=== PATIENT | male | born 1970 | race Caucasian/White ===

== ENCOUNTER 2021-01-20 06:50 | Inpatient (IN) | payer BC ==
[~2021-01-20] VITALS: Ht 170.2 cm; Wt 88.0 kg
[2021-01-20] MEDS ORDERED: KETOROLAC TROMETHAMINE 30 MG/ML VIAL IV STA (07:03)
[2021-01-20] MEDS ORDERED: ONDANSETRON HCL INJ 2MG/ML 2ML 2 MG/ML VIAL IV STA (07:03)
[2021-01-20] MEDS: SODIUM CHLORIDE 0.9% 1000ML 1,000 ML IV SCH ×5 (07:10→22:51)
[2021-01-20] MEDS ORDERED: SODIUM CHLORIDE 0.9% 1000ML 1,000 ML ONE ×2 (07:11→08:13)
[2021-01-20] MEDS ORDERED: ONDANSETRON HCL INJ 2MG/ML 2ML 2 MG/ML VIAL ONE (07:11)
[2021-01-20] MEDS ORDERED: KETOROLAC TROMETHAMINE 30 MG/ML VIAL ONE (07:11)
[2021-01-20] MEDS ORDERED: SODIUM CHLORIDE 0.9% 50ML 50 ML ONE (07:21)
[2021-01-20] MEDS ORDERED: IOPAMIDOL 370 MG/ML 200 ML INFUS..BTL INJ ONE (07:22)
[2021-01-20] MEDS ORDERED: POTASSIUM CHLORIDE 20 MEQ TAB CR PO STA (08:07)
[2021-01-20] MEDS ORDERED: POTASSIUM CHLORIDE 20 MEQ TAB CR PO ONE (08:13)
[2021-01-20] MEDS ORDERED: CEFEPIME 2 GM in SODIUM CHLORIDE 0.9% 100 ML IV ONE (08:15)
[2021-01-20] MEDS ORDERED: METRONIDAZOLE 500MG/NS 100ML 100 ML IV ONE ×2 (08:15→08:37)
[2021-01-20] MEDS ORDERED: SODIUM CHLORIDE 0.9% 1000ML 1,000 ML IV SCH (08:15)
[2021-01-20] MEDS ORDERED: CEFEPIME HCL 1 GM VIAL ONE (08:38)
[2021-01-20] MEDS ORDERED: SODIUM CHLORIDE 0.9% 250ML 250 ML ONE (08:38)
[2021-01-20] MEDS: CEFTRIAXONE 1 GM in SODIUM CHLORIDE 0.9% 50ML 50 ML IV SCH (11:40)
[2021-01-20 12:06] VITALS: BP 116/92
[2021-01-20 12:11] VITALS: BP 116/92
[2021-01-20 12:51] VITALS: BP 116/92
[2021-01-20] MEDS ORDERED: METRONIDAZOLE 500MG/NS 100ML 100 ML IV SCH (14:00)
[2021-01-20] MEDS: METRONIDAZOLE 500 MG TAB PO SCH ×2 (14:00→22:51)
[2021-01-20] MEDS: ACETAMINOPHEN 325 MG TAB PO PRN (14:36)
[2021-01-20 14:41] LABS: CLARITY,URINE CLEAR (CLEAR)
[2021-01-20 14:42] LABS: COLOR,URINE ORANGE (YELLOW); KETONES,URINE NEGATIVE (NEGATIVE); LEUKOCYTE ESTERASE ,URINE NEGATIVE (NEGATIVE); NITRITE,URINE NEGATIVE (NEGATIVE); PROTEIN,URINE DIPSTICK NEGATIVE (NEGATIVE)
[2021-01-20 15:09] LABS: BACTERIA,URINE FEW /HPF; EPITHELIAL CELLS,URINE RARE /LPF; RBC,URINE 0-5 /HPF (0-5)
[2021-01-20] MEDS ORDERED: BENICAR20 MG PO (15:56)
[2021-01-20 17:13] VITALS: BP 110/87
[2021-01-20 19:43] VITALS: BP 114/92
[2021-01-20 21:00] VITALS: BP 114/92
[2021-01-20] MEDS: ONDANSETRON HCL INJ 2MG/ML 2ML 2 MG/ML VIAL IV PRN (21:33)
[2021-01-20] MEDS: Morphine 2mg Syringe 2 MG/ML SYR IV PRN (23:00)
[2021-01-21] VITALS (8 sets, daily range): BP systolic 98–117; BP diastolic 66–85
[2021-01-21 00:58] LABS: BASOPHILS % 0.3 % (0.0-1.0); EOSINOPHILS # (AUTO) 0.1 (0.0-0.4); EOSINOPHILS % 1.5 % (0.0-6.0); HEMATOCRIT 38.3 % (38.2-49.6); HEMOGLOBIN 13.4 g/dL (14.0-18.0); LYMPHOCYTES # (AUTO) 0.9 (1.0-3.2); LYMPHOCYTES % 10.1 % (18.0-39.1); MEAN CORPUSCULAR HEMOGLOBIN 31.6 pg (28-32); MEAN CORPUSCULAR VOLUME 90.3 fL (81-99); MONOCYTES # (AUTO) 1.2 (0.2-0.8); NEUTROPHILS # (AUTO) 6.8 (2.1-6.9); NEUTROPHILS % 74.6 % (38.7-80.0); PLATELET COUNT 150 x10e3/uL (140-360); RED BLOOD COUNT 4.24 x10e6/uL (4.3-5.7)
[2021-01-21] MEDS: ACETAMINOPHEN 325 MG TAB PO PRN ×2 (03:15→13:36)
[2021-01-21 05:46] LABS: BASOPHILS % 0.3 % (0.0-1.0); EOSINOPHILS # (AUTO) 0.1 (0.0-0.4); EOSINOPHILS % 1.3 % (0.0-6.0); HEMATOCRIT 37.9 % (38.2-49.6); HEMOGLOBIN 13.2 g/dL (14.0-18.0); LYMPHOCYTES # (AUTO) 0.9 (1.0-3.2); LYMPHOCYTES % 8.9 % (18.0-39.1); MEAN CORPUSCULAR HEMOGLOBIN 31.9 pg (28-32); MEAN CORPUSCULAR HGB CONC 34.8 g/dL (31-35); MEAN CORPUSCULAR VOLUME 91.5 fL (81-99); MONOCYTES # (AUTO) 1.4 (0.2-0.8); MONOCYTES % 13.7 % (4.4-11.3); NEUTROPHILS # (AUTO) 7.5 (2.1-6.9); NEUTROPHILS % 75.2 % (38.7-80.0); PLATELET COUNT 155 x10e3/uL (140-360); RED BLOOD COUNT 4.14 x10e6/uL (4.3-5.7)
[2021-01-21] MEDS: METRONIDAZOLE 500 MG TAB PO SCH ×3 (05:53→21:30)
[2021-01-21 07:03] LABS: ALBUMIN 2.6 g/dL (3.5-5.0); ALBUMIN/GLOBULIN RATIO 0.7 (0.8-2.0); ANION GAP 15.2 mmol/L (8-16); CALCIUM 8.5 mg/dL (8.4-10.2); CREATININE, SERUM 0.7 mg/dL (0.72-1.25); MAGNESIUM 1.8 MG/DL (1.3-2.1); POTASSIUM 3.2 mmol/L (3.5-5.1)
[2021-01-21] MEDS: CEFTRIAXONE 1 GM in SODIUM CHLORIDE 0.9% 50ML 50 ML IV SCH (09:30)
[2021-01-21] MEDS: SODIUM CHLORIDE 0.9% 1000ML 1,000 ML IV SCH ×3 (10:00→21:48)
[2021-01-21] MEDS: ONDANSETRON HCL INJ 2MG/ML 2ML 2 MG/ML VIAL IV PRN (13:36)
[2021-01-21] MEDS ORDERED: POTASSIUM CHLORIDE 20 MEQ TAB CR PO ONE (14:30)
[2021-01-21] MEDS: OLMESARTAN 20 MG TAB PO SCH (14:42)
[2021-01-21] MEDS: FAMOTIDINE 20 MG TAB PO SCH (17:33)
[2021-01-22] VITALS (7 sets, daily range): BP systolic 92–112; BP diastolic 55–91
[2021-01-22] MEDS ORDERED: DILTIAZEM HCL 5 MG/ML 5 ML VIAL IV ONE (04:30)
[2021-01-22] MEDS: METRONIDAZOLE 500 MG TAB PO SCH ×3 (04:45→21:50)
[2021-01-22 05:18] LABS: BASOPHILS # (AUTO) 0.1 (0.0-0.1); BASOPHILS % 0.6 % (0.0-1.0); EOSINOPHILS # (AUTO) 0.2 (0.0-0.4); EOSINOPHILS % 1.3 % (0.0-6.0); HEMATOCRIT 40.6 % (38.2-49.6); HEMOGLOBIN 14.4 g/dL (14.0-18.0); LYMPHOCYTES # (AUTO) 1.4 (1.0-3.2); LYMPHOCYTES % 10.8 % (18.0-39.1); MEAN CORPUSCULAR HEMOGLOBIN 32.1 pg (28-32); MEAN CORPUSCULAR HGB CONC 35.5 g/dL (31-35); MEAN CORPUSCULAR VOLUME 90.6 fL (81-99); MONOCYTES # (AUTO) 1.7 (0.2-0.8); MONOCYTES % 13.4 % (4.4-11.3); NEUTROPHILS # (AUTO) 9.2 (2.1-6.9); NEUTROPHILS % 72.6 % (38.7-80.0); PLATELET COUNT 180 x10e3/uL (140-360); RED BLOOD COUNT 4.48 x10e6/uL (4.3-5.7); RED CELL DISTRIBUTION WIDTH 12.2 % (11.7-14.4)
[2021-01-22 06:06] LABS: ALBUMIN 2.6 g/dL (3.5-5.0); ALBUMIN/GLOBULIN RATIO 0.7 (0.8-2.0); ANION GAP 16.2 mmol/L (8-16); CHOL/HDL RATIO 4.3 (3.9-4.7); CREATININE, SERUM 0.66 mg/dL (0.72-1.25); POTASSIUM 3.2 mmol/L (3.5-5.1)
[2021-01-22] MEDS: OLMESARTAN 20 MG TAB PO SCH (09:00)
[2021-01-22] MEDS ORDERED: POTASSIUM CHLORIDE 20MEQ/100ML 200 ML IV ONE (09:45)
[2021-01-22] MEDS: SODIUM CHLORIDE 0.9% 1000ML 1,000 ML IV SCH ×2 (10:00→16:56)
[2021-01-22] MEDS: CEFTRIAXONE 1 GM in SODIUM CHLORIDE 0.9% 50ML 50 ML IV SCH (12:02)
[2021-01-22] MEDS: FAMOTIDINE 20 MG TAB PO SCH ×2 (12:02→15:52)
[2021-01-22] MEDS ORDERED: MAGNESIUM SULFATE 2GM/50ML 50 ML IV ONE (13:00)
[2021-01-22] MEDS ORDERED: ENOXAPARIN INJ 80 MG/0.8 ML SYR SC SCH (21:00)
[2021-01-22] MEDS: METOPROLOL TARTRATE 25 MG TAB PO SCH (21:07)
[2021-01-22] MEDS: ENOXAPARIN SODIUM INJ 100 MG/ML SYR SC SCH (21:07)
[2021-01-23] VITALS (8 sets, daily range): BP systolic 98–125; BP diastolic 70–87
[2021-01-23] MEDS: SODIUM CHLORIDE 0.9% 1000ML 1,000 ML IV SCH (01:14)
[2021-01-23 05:01] LABS: BASOPHILS # (AUTO) 0.1 (0.0-0.1); BASOPHILS % 0.5 % (0.0-1.0); EOSINOPHILS # (AUTO) 0.1 (0.0-0.4); HEMATOCRIT 37.1 % (38.2-49.6); HEMOGLOBIN 12.7 g/dL (14.0-18.0); LYMPHOCYTES # (AUTO) 2.1 (1.0-3.2); LYMPHOCYTES % 15.2 % (18.0-39.1); MEAN CORPUSCULAR HEMOGLOBIN 31.8 pg (28-32); MEAN CORPUSCULAR HGB CONC 34.2 g/dL (31-35); MEAN CORPUSCULAR VOLUME 92.8 fL (81-99); MONOCYTES # (AUTO) 1.9 (0.2-0.8); NEUTROPHILS # (AUTO) 9.3 (2.1-6.9); NEUTROPHILS % 67.9 % (38.7-80.0); PLATELET COUNT 203 x10e3/uL (140-360); RED CELL DISTRIBUTION WIDTH 12.5 % (11.7-14.4)
[2021-01-23 05:25] LABS: ALBUMIN 2.4 g/dL (3.5-5.0); ALBUMIN/GLOBULIN RATIO 0.7 (0.8-2.0); ANION GAP 14.2 mmol/L (8-16); CALCIUM 7.7 mg/dL (8.4-10.2); CREATININE, SERUM 0.67 mg/dL (0.72-1.25); MAGNESIUM 1.9 MG/DL (1.3-2.1); POTASSIUM 3.2 mmol/L (3.5-5.1)
[2021-01-23] MEDS: METRONIDAZOLE 500 MG TAB PO SCH ×3 (05:25→22:14)
[2021-01-23] MEDS: ACETAMINOPHEN 325 MG TAB PO PRN (05:36)
[2021-01-23 05:48] LABS: THYROID STIMULATING HORMONE 1.503 uIU/mL (0.350-4.940)
[2021-01-23] MEDS ORDERED: POTASSIUM CHLORIDE 20 MEQ TAB CR PO ONE (07:20)
[2021-01-23] MEDS: METOPROLOL TARTRATE 25 MG TAB PO SCH ×2 (08:25→22:14)
[2021-01-23] MEDS: ENOXAPARIN SODIUM INJ 100 MG/ML SYR SC SCH ×2 (08:30→21:15)
[2021-01-23] MEDS: METOPROLOL TARTRATE INJ 1 MG/ML VIAL IV PRN (08:30)
[2021-01-23] MEDS: FAMOTIDINE 20 MG TAB PO SCH ×2 (08:30→16:45)
[2021-01-23] MEDS: CEFTRIAXONE 1 GM in SODIUM CHLORIDE 0.9% 50ML 50 ML IV SCH (08:41)
[2021-01-23] MEDS ORDERED: MAGNESIUM SULFATE 2GM/50ML 50 ML IV ONE (10:00)
[2021-01-23] MEDS ORDERED: ONDANSETRON HCL 4 MG ORAL DISINTEGRATING TAB PO PRN (10:15)
[2021-01-23] MEDS ORDERED: POTASSIUM CHLORIDE 20 MEQ TAB CR PO SCH (10:30)
[2021-01-23] MEDS: THIAMINE HCL 100 MG TAB PO SCH (10:40)
[2021-01-23] MEDS: ASPIRIN 325 MG TAB PO SCH (10:40)
[2021-01-23] MEDS: FOLIC ACID 1 MG TAB PO SCH (10:40)
[2021-01-23] MEDS: AMIODARONE HCL 200 MG TAB PO SCH ×2 (12:55→22:14)
[2021-01-23 14:25] LABS: MONOTEST NEGATIVE (NEGATIVE)
[2021-01-23 14:39] LABS: HIV 1&2 AB SCREEN NON-REACTIVE (NONREACTIVE)
[2021-01-24] VITALS (13 sets, daily range): BP systolic 89–116; BP diastolic 70–86
[2021-01-24] MEDS: ACETAMINOPHEN 325 MG TAB PO PRN ×2 (02:07→11:55)
[2021-01-24] MEDS: METRONIDAZOLE 500 MG TAB PO SCH ×3 (05:28→21:39)
[2021-01-24 06:08] LABS: BASOPHILS # (AUTO) 0.1 (0.0-0.1); BASOPHILS % 0.9 % (0.0-1.0); EOSINOPHILS # (AUTO) 0.2 (0.0-0.4); EOSINOPHILS % 1.6 % (0.0-6.0); HEMATOCRIT 38.7 % (38.2-49.6); HEMOGLOBIN 13.3 g/dL (14.0-18.0); LYMPHOCYTES # (AUTO) 2.4 (1.0-3.2); LYMPHOCYTES % 18.5 % (18.0-39.1); MEAN CORPUSCULAR HEMOGLOBIN 31.7 pg (28-32); MEAN CORPUSCULAR HGB CONC 34.4 g/dL (31-35); MEAN CORPUSCULAR VOLUME 92.4 fL (81-99); MONOCYTES # (AUTO) 1.7 (0.2-0.8); MONOCYTES % 13.4 % (4.4-11.3); NEUTROPHILS # (AUTO) 8.2 (2.1-6.9); NEUTROPHILS % 63.7 % (38.7-80.0); PLATELET COUNT 250 x10e3/uL (140-360); RED BLOOD COUNT 4.19 x10e6/uL (4.3-5.7); RED CELL DISTRIBUTION WIDTH 12.4 % (11.7-14.4)
[2021-01-24] MEDS: METOPROLOL TARTRATE INJ 1 MG/ML VIAL IV PRN (06:08)
[2021-01-24 06:36] LABS: ALBUMIN 2.5 g/dL (3.5-5.0); ALBUMIN/GLOBULIN RATIO 0.6 (0.8-2.0); ANION GAP 13.8 mmol/L (8-16); CREATININE, SERUM 0.68 mg/dL (0.72-1.25); POTASSIUM 3.8 mmol/L (3.5-5.1)
[2021-01-24 07:09] LABS: CALCIUM 8.4 mg/dL (8.4-10.2)
[2021-01-24] MEDS: FAMOTIDINE 20 MG TAB PO SCH ×2 (07:30→16:26)
[2021-01-24] MEDS ORDERED: METOPROLOL TARTRATE INJ 1 MG/ML VIAL IV ONE ×2 (07:48→09:00)
[2021-01-24] MEDS ORDERED: LORAZEPAM INJ 2 MG/ML VIAL ONE (07:55)
[2021-01-24] MEDS ORDERED: LORAZEPAM INJ 2 MG/ML VIAL IV ONE (08:00)
[2021-01-24] MEDS: ENOXAPARIN SODIUM INJ 100 MG/ML SYR SC SCH (08:30)
[2021-01-24] MEDS ORDERED: METOPROLOL SUCCINATE 25 MG TAB XL PO SCH (09:00)
[2021-01-24] MEDS: THIAMINE HCL 100 MG TAB PO SCH (09:00)
[2021-01-24] MEDS: CEFTRIAXONE 1 GM in SODIUM CHLORIDE 0.9% 50ML 50 ML IV SCH (09:00)
[2021-01-24] MEDS: AMIODARONE HCL 200 MG TAB PO SCH (09:00)
[2021-01-24] MEDS: FOLIC ACID 1 MG TAB PO SCH (09:00)
[2021-01-24] MEDS: ASPIRIN 325 MG TAB PO SCH (09:00)
[2021-01-24] MEDS ORDERED: POTASSIUM CHLORIDE 20 MEQ TAB CR PO NR (10:30)
[2021-01-24] MEDS ORDERED: SODIUM CHLORIDE 0.9% 1000ML 1,000 ML IV SCH (12:00)
[2021-01-24] MEDS ORDERED: SODIUM CHLORIDE 0.9% 1000ML 500 ML IV ONE ×2 (12:15→12:45)
[2021-01-24] MEDS ORDERED: AMIODARONE HCL 150 MG/100 ML BAG IV NR (12:15)
[2021-01-24] MEDS: AMIODARONE 900MG 500 ML IV ONE ×2 (12:30→12:58)
[2021-01-24] MEDS ORDERED: DIGOXIN INJ 0.25 MG/ML 2 ML AMP IV NR (12:45)
[2021-01-24] MEDS: METOPROLOL SUCCINATE 25 MG TAB XL PO SCH (20:28)
[2021-01-24] MEDS: Morphine 2mg Syringe 2 MG/ML SYR IV PRN (23:13)
[2021-01-25] VITALS (11 sets, daily range): BP systolic 104–134; BP diastolic 73–99
[2021-01-25] MEDS: METOPROLOL TARTRATE INJ 1 MG/ML VIAL IV PRN ×2 (03:45→21:10)
[2021-01-25] MEDS: METRONIDAZOLE 500 MG TAB PO SCH ×2 (05:12→15:00)
[2021-01-25] MEDS: ACETAMINOPHEN 325 MG TAB PO PRN ×2 (05:13→19:45)
[2021-01-25 05:53] LABS: BASOPHILS # (AUTO) 0.1 (0.0-0.1); BASOPHILS % 0.6 % (0.0-1.0); EOSINOPHILS # (AUTO) 0.2 (0.0-0.4); EOSINOPHILS % 1.8 % (0.0-6.0); HEMATOCRIT 37.8 % (38.2-49.6); HEMOGLOBIN 13.3 g/dL (14.0-18.0); LYMPHOCYTES # (AUTO) 1.8 (1.0-3.2); LYMPHOCYTES % 13.8 % (18.0-39.1); MEAN CORPUSCULAR HEMOGLOBIN 31.8 pg (28-32); MEAN CORPUSCULAR HGB CONC 35.2 g/dL (31-35); MEAN CORPUSCULAR VOLUME 90.4 fL (81-99); MONOCYTES # (AUTO) 1.7 (0.2-0.8); MONOCYTES % 12.6 % (4.4-11.3); PLATELET COUNT 302 x10e3/uL (140-360); RED BLOOD COUNT 4.18 x10e6/uL (4.3-5.7); RED CELL DISTRIBUTION WIDTH 12.3 % (11.7-14.4)
[2021-01-25 06:26] LABS: ALBUMIN 2.5 g/dL (3.5-5.0); ALBUMIN/GLOBULIN RATIO 0.6 (0.8-2.0); ANION GAP 13.8 mmol/L (8-16); CALCIUM 9.2 mg/dL (8.4-10.2); CREATININE, SERUM 0.7 mg/dL (0.72-1.25); POTASSIUM 3.8 mmol/L (3.5-5.1)
[2021-01-25] MEDS: THIAMINE HCL 100 MG TAB PO SCH (08:21)
[2021-01-25] MEDS: CEFTRIAXONE 1 GM in SODIUM CHLORIDE 0.9% 50ML 50 ML IV SCH (08:21)
[2021-01-25] MEDS: ASPIRIN 325 MG TAB PO SCH (08:21)
[2021-01-25] MEDS: FAMOTIDINE 20 MG TAB PO SCH ×2 (08:21→17:26)
[2021-01-25] MEDS: FOLIC ACID 1 MG TAB PO SCH (08:21)
[2021-01-25] MEDS: METOPROLOL SUCCINATE 25 MG TAB XL PO SCH ×2 (08:21→20:44)
[2021-01-25] MEDS ORDERED: CEFTRIAXONE 1 GM VIAL ONE (08:24)
[2021-01-25] MEDS ORDERED: AMIODARONE HCL 200 MG TAB PO SCH (21:00)
[2021-01-25] MEDS ORDERED: AMIODARONE 900MG 500 ML IV ONE ×2 (21:45→21:57)
[2021-01-25] MEDS ORDERED: AMIODARONE HCL 150 MG/100 ML BAG IV ONE (21:45)
[2021-01-25] MEDS ORDERED: AMIODARONE HCL 100 ML IV ONE (21:57)
[2021-01-26] VITALS (7 sets, daily range): BP systolic 98–114; BP diastolic 75–87
[2021-01-26 07:36] LABS: BASOPHILS # (AUTO) 0.1 (0.0-0.1); BASOPHILS % 0.6 % (0.0-1.0); EOSINOPHILS # (AUTO) 0.3 (0.0-0.4); EOSINOPHILS % 1.7 % (0.0-6.0); HEMATOCRIT 40.5 % (38.2-49.6); HEMOGLOBIN 14.4 g/dL (14.0-18.0); LYMPHOCYTES # (AUTO) 2.1 (1.0-3.2); LYMPHOCYTES % 12.5 % (18.0-39.1); MEAN CORPUSCULAR HEMOGLOBIN 31.9 pg (28-32); MEAN CORPUSCULAR HGB CONC 35.6 g/dL (31-35); MEAN CORPUSCULAR VOLUME 89.6 fL (81-99); MONOCYTES % 11.8 % (4.4-11.3); NEUTROPHILS # (AUTO) 12.1 (2.1-6.9); NEUTROPHILS % 71.6 % (38.7-80.0); PLATELET COUNT 402 x10e3/uL (140-360); RED BLOOD COUNT 4.52 x10e6/uL (4.3-5.7); RED CELL DISTRIBUTION WIDTH 12.2 % (11.7-14.4)
[2021-01-26 07:59] LABS: ANION GAP 14.1 mmol/L (8-16); CREATININE, SERUM 0.75 mg/dL (0.72-1.25); POTASSIUM 4.1 mmol/L (3.5-5.1)
[2021-01-26] MEDS: ASPIRIN 325 MG TAB PO SCH (08:35)
[2021-01-26] MEDS: FOLIC ACID 1 MG TAB PO SCH (08:35)
[2021-01-26] MEDS: THIAMINE HCL 100 MG TAB PO SCH (08:35)
[2021-01-26] MEDS: FAMOTIDINE 20 MG TAB PO SCH ×2 (08:35→16:30)
[2021-01-26] MEDS: METOPROLOL SUCCINATE 25 MG TAB XL PO SCH ×2 (08:38→20:02)
[2021-01-26] MEDS ORDERED: IOPAMIDOL 370 MG/ML 200 ML INFUS..BTL INJ ONE (18:22)
[2021-01-26] MEDS ORDERED: SODIUM CHLORIDE 0.9% 50ML 50 ML ONE (18:22)
[2021-01-26] MEDS ORDERED: AMIODARONE 900MG 500 ML IV ONE (19:30)
[2021-01-26] MEDS: ACETAMINOPHEN 325 MG TAB PO PRN (20:34)
[2021-01-27] VITALS (7 sets, daily range): BP systolic 108–117; BP diastolic 77–83
[2021-01-27 05:32] LABS: BASOPHILS # (AUTO) 0.1 (0.0-0.1); BASOPHILS % 0.7 % (0.0-1.0); EOSINOPHILS # (AUTO) 0.2 (0.0-0.4); EOSINOPHILS % 1.5 % (0.0-6.0); HEMATOCRIT 42.6 % (38.2-49.6); HEMOGLOBIN 14.3 g/dL (14.0-18.0); LYMPHOCYTES # (AUTO) 2.1 (1.0-3.2); LYMPHOCYTES % 13.1 % (18.0-39.1); MEAN CORPUSCULAR HGB CONC 33.6 g/dL (31-35); MEAN CORPUSCULAR VOLUME 92.4 fL (81-99); MONOCYTES # (AUTO) 1.9 (0.2-0.8); MONOCYTES % 11.6 % (4.4-11.3); NEUTROPHILS # (AUTO) 11.5 (2.1-6.9); NEUTROPHILS % 70.6 % (38.7-80.0); PLATELET COUNT 391 x10e3/uL (140-360); RED BLOOD COUNT 4.61 x10e6/uL (4.3-5.7); RED CELL DISTRIBUTION WIDTH 12.3 % (11.7-14.4)
[2021-01-27 05:49] LABS: CALCIUM 9.1 mg/dL (8.4-10.2); CREATININE, SERUM 0.8 mg/dL (0.72-1.25)
[2021-01-27] MEDS: ASPIRIN 325 MG TAB PO SCH (08:10)
[2021-01-27] MEDS: FAMOTIDINE 20 MG TAB PO SCH ×2 (08:10→17:00)
[2021-01-27] MEDS: THIAMINE HCL 100 MG TAB PO SCH (08:10)
[2021-01-27] MEDS: FOLIC ACID 1 MG TAB PO SCH (08:10)
[2021-01-27] MEDS: METOPROLOL SUCCINATE 25 MG TAB XL PO SCH ×2 (08:11→21:00)
[2021-01-27] MEDS: ACETAMINOPHEN 325 MG TAB PO PRN (18:43)
[2021-01-28] VITALS (9 sets, daily range): BP systolic 103–126; BP diastolic 67–91
[2021-01-28] MEDS ORDERED: CHOLESTYRAMINE 4 GM PACKET PO ONE (00:30)
[2021-01-28] MEDS ORDERED: AMIODARONE 900MG 500 ML IV ONE (00:30)
[2021-01-28 05:22] LABS: BASOPHILS # (AUTO) 0.1 (0.0-0.1); BASOPHILS % 0.7 % (0.0-1.0); EOSINOPHILS # (AUTO) 0.2 (0.0-0.4); EOSINOPHILS % 1.5 % (0.0-6.0); HEMATOCRIT 42.9 % (38.2-49.6); HEMOGLOBIN 14.8 g/dL (14.0-18.0); LYMPHOCYTES # (AUTO) 1.8 (1.0-3.2); LYMPHOCYTES % 11.2 % (18.0-39.1); MEAN CORPUSCULAR HEMOGLOBIN 31.5 pg (28-32); MEAN CORPUSCULAR HGB CONC 34.5 g/dL (31-35); MEAN CORPUSCULAR VOLUME 91.3 fL (81-99); MONOCYTES # (AUTO) 1.7 (0.2-0.8); MONOCYTES % 10.4 % (4.4-11.3); NEUTROPHILS # (AUTO) 12.2 (2.1-6.9); NEUTROPHILS % 74.6 % (38.7-80.0); PLATELET COUNT 417 x10e3/uL (140-360)
[2021-01-28 05:47] LABS: ALBUMIN 2.9 g/dL (3.5-5.0); ALBUMIN/GLOBULIN RATIO 0.6 (0.8-2.0); ANION GAP 16.2 mmol/L (8-16); CALCIUM 8.9 mg/dL (8.4-10.2); CREATININE, SERUM 0.83 mg/dL (0.72-1.25); INR 0.96; POTASSIUM 4.2 mmol/L (3.5-5.1); PROTHROMBIN TIME 13.5 seconds (11.9-14.5)
[2021-01-28] MEDS: ACETAMINOPHEN 325 MG TAB PO PRN ×2 (06:19→16:50)
[2021-01-28] MEDS: FAMOTIDINE 20 MG TAB PO SCH ×2 (07:30→16:10)
[2021-01-28] MEDS ORDERED: CHOLESTYRAMINE 4 GM PACKET PO SCH (09:00)
[2021-01-28] MEDS ORDERED: REGADENOSON 0.4 MG/5 ML SYR IV ONE (09:15)
[2021-01-28] MEDS: FOLIC ACID 1 MG TAB PO SCH (11:00)
[2021-01-28] MEDS: METOPROLOL SUCCINATE 25 MG TAB XL PO SCH ×2 (11:00→21:10)
[2021-01-28] MEDS: THIAMINE HCL 100 MG TAB PO SCH (11:00)
[2021-01-28] MEDS: CHOLESTYRAMINE 4 GM PACKET PO SCH (11:01)
[2021-01-28] MEDS: AMIODARONE HCL 200 MG TAB PO SCH (16:10)
[2021-01-28] MEDS: APIXABAN 5 MG TABLET PO SCH (16:10)
[2021-01-28] MEDS ORDERED: AMIODARONE HCL200 MG PO (23:33)
[2021-01-28] MEDS ORDERED: TOPROL XL25 MG PO (23:33)
[2021-01-28] MEDS ORDERED: ELIQUIS5 MG PO (23:33)
[2021-01-29 00:23] VITALS: BP 107/75
[2021-01-29] MEDS: ACETAMINOPHEN 325 MG TAB PO PRN (00:23)
[2021-01-29 05:23] LABS: BASOPHILS # (AUTO) 0.1 (0.0-0.1); BASOPHILS % 0.7 % (0.0-1.0); EOSINOPHILS # (AUTO) 0.3 (0.0-0.4); EOSINOPHILS % 2.1 % (0.0-6.0); HEMOGLOBIN 14.6 g/dL (14.0-18.0); LYMPHOCYTES # (AUTO) 2.7 (1.0-3.2); LYMPHOCYTES % 17.8 % (18.0-39.1); MEAN CORPUSCULAR HEMOGLOBIN 31.9 pg (28-32); MEAN CORPUSCULAR HGB CONC 34.8 g/dL (31-35); MEAN CORPUSCULAR VOLUME 91.9 fL (81-99); MONOCYTES # (AUTO) 1.5 (0.2-0.8); NEUTROPHILS # (AUTO) 10.4 (2.1-6.9); NEUTROPHILS % 67.5 % (38.7-80.0); PLATELET COUNT 453 x10e3/uL (140-360); RED BLOOD COUNT 4.57 x10e6/uL (4.3-5.7); RED CELL DISTRIBUTION WIDTH 11.9 % (11.7-14.4)
[2021-01-29 05:58] LABS: ALBUMIN 2.8 g/dL (3.5-5.0); ALBUMIN/GLOBULIN RATIO 0.6 (0.8-2.0); ANION GAP 14.9 mmol/L (8-16); CALCIUM 9.2 mg/dL (8.4-10.2); CREATININE, SERUM 0.84 mg/dL (0.72-1.25); POTASSIUM 3.9 mmol/L (3.5-5.1)
[2021-01-29 06:14] VITALS: BP 104/74
[2021-01-29 07:13] VITALS: BP 100/72
[2021-01-29] MEDS: FAMOTIDINE 20 MG TAB PO SCH (08:02)
[2021-01-29 08:07] VITALS: BP 100/72
[2021-01-29] MEDS: AMIODARONE HCL 200 MG TAB PO SCH (08:25)
[2021-01-29] MEDS: FOLIC ACID 1 MG TAB PO SCH (08:25)
[2021-01-29] MEDS: APIXABAN 5 MG TABLET PO SCH (08:25)
[2021-01-29] MEDS: THIAMINE HCL 100 MG TAB PO SCH (08:26)
[2021-01-29] MEDS: METOPROLOL SUCCINATE 25 MG TAB XL PO SCH (08:34)
[2021-01-29] MEDS: CHOLESTYRAMINE 4 GM PACKET PO SCH (10:00)
[2021-01-29] MEDS ORDERED: AMIODARONE HCL200 MG PO (11:00)
[2021-01-29 12:40] VITALS: BP 110/79
== END 2021-01-29 13:30 | disposition home or self-care (01) | DRG 872 ==
LOC: FSED 07:12 → ERHOLD 09:51 → MED/SURG2 11:27 → IMCU 01-24 15:34
PROVIDERS: ADMIT Internal Medicine; ATTEND Internal Medicine
DX: A41.9 Sepsis, unspecified organism (principal); B17.9 Acute viral hepatitis, unspecified; K83.09 Other cholangitis; I48.0 Paroxysmal atrial fibrillation; Z79.01 Long term (current) use of anticoagulants; D72.821 Monocytosis (symptomatic); B34.9 Viral infection, unspecified; E88.09 Other disorders of plasma-protein metabolism, not elsewhere classified; E87.6 Hypokalemia; E83.42 Hypomagnesemia; E86.0 Dehydration; K52.9 Noninfective gastroenteritis and colitis, unspecified; I11.0 Hypertensive heart disease with heart failure; I50.9 Heart failure, unspecified; F10.20 Alcohol dependence, uncomplicated
CPT/HCPCS: 36415; 71045; 71260; 74177; 74181; 76705; 78227; 78452; 80048; 80053; 80061; 80076; 81001; 81003; 82553; 82948; 83036; 83516; 83605; 83690; 83735; 83880; 83993; 84443; 84484; 85025; 85610; 86039; 86160; 86225; 86235; 86255; 86256; 86308; 86376; 86644; 86645; 86663; 86664; 86665; 86777; 86778; 87040; 87086; 87390; 87493; 93005; 93017; 93306; 96374; 96376; 99284; A9502; A9537; G0433; G0435; J0692; J0696; J1160; J1650; J1885; J2060; J2270; J2405; J3411; J3475; J3480; J7030; J7050; Q9967; U0002